=== PATIENT | male | born 1965 ===

== ENCOUNTER 2016-12-18 08:33 | Emergency (ER) | payer OTHER, BC ==
[2016-12-18 08:35] VITALS: BP 134/70; PULSE 74; TEMP 97; O2SAT 100
[2016-12-18 08:36] VITALS: BMI 36.9
--- NOTE | 2016-12-18 09:56 | ED PDOC ---
Lower Extremity Pain/Injury Time Seen by Provider: 12/18/16 09:26 Chief Complaint (Nursing): Lower Extremity Problem/Injury Chief Complaint (Provider): L knee injury History Per: Patient History/Exam Limitations: no limitations Onset/Duration Of Symptoms: Days (Today) Current Symptoms Are (Timing): Still Present Additional Complaint(s): Pt. accidentally slipped on ice and landed on his left knee. Has pain there but able to put weight on it. No numbness, tingles, weakness. No head injury or neck pain. Ambulated after. Has had injury with fx to that knee in September. Past Medical History Reviewed: Nursing Documentation, Vital Signs Vital Signs: Last Vital Signs Temp 97 F L 12/18/16 08:35 Pulse 74 12/18/16 08:35 Resp BP 134/70 12/18/16 08:35 Pulse Ox 100 12/18/16 08:35 - Medical History PMH: Fractures (lt knee) - Surgical History Surgical History: Denies: Appendectomy - Family History Family History: States: Unknown Family Hx - Social History Current smoker - smoking cessation education provided: No Alcohol: None Drugs: Denies - Home Medications Home Medications: Ambulatory Orders Medication Instructions Recorded Ibuprofen [Motrin] 600 mg PO TID 7 Days 12/18/16 - Allergies Allergies/Adverse Reactions: Allergies Allergy/AdvReac Type Severity Reaction Status Date / Time No Known Allergies Allergy Verified 12/18/16 08:42 Review of Systems Constitutional: Negative for: Weakness Cardiovascular: Negative for: Chest Pain Respiratory: Negative for: Shortness of Breath Gastrointestinal: Negative for: Abdominal Pain Musculoskeletal: Positive for: Leg Pain. Negative for: Neck Pain, Shoulder Pain , Arm Pain, Back Pain, Hand Pain, Foot Pain Skin: Negative for: Rash Neurological: Negative for: Weakness, Numbness, Confusion, Headache, Dizziness Physical Exam - Reviewed Nursing Documentation Reviewed: Yes Vital Signs Reviewed: Yes - Physical Exam Appears: Positive for: Well, Non-toxic, No Acute Distress Head Exam: Positive for: ATRAUMATIC, NORMAL INSPECTION, NORMOCEPHALIC Eye Exam: Positive for: EOMI, Normal appearance, PERRL Neck: Positive for: Normal, Painless ROM, Supple Cardiovascular/Chest: Positive for: Regular Rate, Rhythm Respiratory: Positive for: CNT, Normal Breath Sounds Back: Positive for: Normal Inspection. Negative for: L CVA Tenderness, R CVA Tenderness Extremity: Positive for: Tenderness (L knee diffuse; mild swelling; full ROM on active and passive ROM.). Negative for: Pedal Edema, Calf Tenderness Neurologic/Psych: Positive for: Alert, Oriented - ECG O2 Sat by Pulse Oximetry: 100 - Radiology X-Ray: Read By Radiologist X-Ray Interpretation: Fracture (Mildly displaced fracture through the posterior tibial plateau. Questionable lucent lesion seen in the frontal projection which may be artifactual although the possibility of a pathologic fracture must also be considered. Recommend orthopedic console to.) - Progress ED Course And Treament: 1145: Spoke with Dr. Johnson. Made aware of findings, pathalogic process possible, and fx. Wants ct, knee immobilizer, crutches, and fu with him. Pt. stable. AAOx3. Pain controlled. Unclear if fx new or old. No old films to compare. Disposition - Clinical Impression Clinical Impression: Tibial plateau fracture - Patient ED Disposition Is Patient to be Admitted: No Counseled Patient/Family Regarding: Studies Performed, Diagnosis, Need For Followup, Rx Given - Disposition Referrals: Zeb Johnson MD [Staff Provider] - 12/21/16 Disposition: Routine/Home Disposition Time: 12:16 Condition: STABLE Additional Instructions: Return if not better in 3 days. Prescriptions: Ibuprofen [Motrin] 600 mg PO TID 7 Days Instructions: Leg Fracture (ED) Forms: [facility] ED School/Work Excuse
--- NOTE | 2016-12-18 10:52 | RAD ---
PROCEDURE: Left Knee Radiographs. HISTORY: Pain. COMPARISON: None. FINDINGS: BONES: There is fracture through the posterior tibial plateau evident in the lateral projection. It is mildly displaced. In the frontal projection, there is a vaguely rounded lucency seen in the proximal tibia which may represent a lucent lesion through which there has been pathologic fracture. Alternatively, this could be artifactual as a result of a mildly displaced fracture of the posterior tibial plateau. Further evaluation is suggested. Orthopedic consultation is advised and if further evaluation with either computed tomography or magnetic resonance imaging may be of added value. JOINTS: As above JOINT EFFUSION: There is evidence of hemarthrosis. OTHER FINDINGS: None. IMPRESSION: Mildly displaced fracture through the posterior tibial plateau. Questionable lucent lesion seen in the frontal projection which may be artifactual although the possibility of a pathologic fracture must also be considered. Recommend orthopedic console to.
--- NOTE | 2016-12-18 12:44 | CT ---
PROCEDURE: CT left knee HISTORY: fx eval knee. Patient indicates history of fracture in September 2016. No imaging studies available. COMPARISON: None available TECHNIQUE: 2.5 mm contiguous axial sections were acquired through the left knee. Sagittal and coronal images were reformatted from the axial scan. FINDINGS: There is a comminuted fracture of the posterior tibial plateau in the midline. There is mild displacement of the main fragment. There is a fragment that is displaced posteriorly and inferiorly from the fracture site. There are numerous small comminuted fracture fragments seen at the superior aspect of the mean fragment. The possibility of acute on chronic fracture must be considered. There is no callus seen about the fracture. No other fracture is identified. There is moderate suprapatellar bursal effusion. There is prepatellar ecchymosis. IMPRESSION: Comminuted mildly displaced midline fracture of the posterior tibial plateau with a fragment displaced posteriorly and inferiorly from the main fracture site. History of fracture September 2016. It is not clear whether there is acute on chronic fracture. Moderate suprapatellar bursal effusion. .
== END 2016-12-18 13:00 | disposition home or self-care (01) ==
LOC: H.ER 08:33
DX: S82.142A Displaced bicondylar fracture of left tibia, initial encounter for closed fracture (principal); W00.0XXA Fall on same level due to ice and snow, initial encounter; Y92.89 Other specified places as the place of occurrence of the external cause